=== PATIENT | female | born 1965 | race Caucasian/White ===

== ENCOUNTER → 2017-05-07 | Outpatient (CLI) | payer OTHER ==
--- NOTE | 2017-05-07 15:26 | REP ---
MRI RIGHT SHOULDER WITHOUT CONTRAST: HISTORY: Adhesive capsulitis of the right shoulder. No comparison radiographs. TECHNIQUE: Axial, oblique coronal, and oblique sagittal imaging planes are utilized. T1 and T2-weighted scans obtain in the usual fashion with and without fat saturation. MRI FINDINGS: There is a moderate sized glenohumeral joint effusion. No loose body is seen. Glenohumeral and acromioclavicular joints are normally aligned. There is AC joint hypertrophy and spurring. Subcortical cyst formation is seen in the superolateral humeral head. There is advanced tendonitis/tendinosis change in the distal supraspinatus tendon on oblique coronal T1-weighted scans. No focal or full-thickness supraspinatus cuff tear is seen. No retraction is seen. The infraspinatus, subscapularis, and biceps tendons appear intact. No anterior or posterior labral disruption is seen. No superior labral tear is seen. No juxta-articular cyst or mass is observed. There is mild inferolateral acromion process spurring. IMPRESSION: Advanced supraspinatus tendinosis change with thickening and increased signal intensity. AC joint and acromion process spurring. Subcortical cyst formation in the humeral head. Moderate sized glenohumeral joint effusion. Signed by Filipe Neri MD 05/07/2017 04:39 P
--- NOTE | 2017-05-07 16:06 | REP ---
MRI right humerus without contrast: History: Adhesive capsulitis of the right shoulder. No comparison radiographs. Technique: Axial, coronal and sagittal imaging planes are acquired. T1 and T2-weighted scans were obtained with and without fat saturation. MRI findings: Cortical and medullary bone signal intensity are normal in the humerus apart from the presence of subcortical cyst formation in the superolateral humeral head, which was described in the shoulder MRI study. No other evidence of bony abnormality. Joint effusion is seen at the glenohumeral articulation. No vascular abnormality is seen. Skeletal muscle shows normal T1 and T2-weighted signal intensity. No soft tissue mass or cyst is seen. Impression: Findings of subcortical cyst formation and joint effusion at the shoulder as described in the shoulder MRI. No additional abnormality. Signed by Filipe Neri MD 05/07/2017 04:39 P
== END ==
LOC: M PLARAD 13:34
PROVIDERS: ATTEND Orthopaedic Surgery
DX: M75.01 Adhesive capsulitis of right shoulder (principal)

== ENCOUNTER → 2021-02-05 | Outpatient (CLI) | payer BC ==
[~2021-02-05] MED LIST: PROHANCE 279.3MG/ML 15ML VIAL As Ordered ONE
--- NOTE | 2021-02-07 09:26 | REP ---
INDICATION: PANCREATIC MASS. COMPARISON: CT 11/13/2020, 12/05/2020. TECHNIQUE: Multiple sequences obtained in the axial coronal planes prior to and following the intravenous administration of 12 mL ProHance. FINDINGS: The liver is normal in size and demonstrates no abnormal signal or enhancement. No filling defect is seen in the gallbladder and there is no evidence of gallbladder wall edema. The common bile duct is at the upper limits of normal in caliber at 7 mm maximally. The spleen is normal in size with no intrinsic abnormality. The adrenal glands are normal. No renal mass or hydronephrosis is seen. The pancreas demonstrates homogeneous signal throughout. There is no pancreatic duct dilatation. No cystic or solid mass is seen. There is no abnormal enhancement. There is no evidence of adenopathy or free fluid in the abdomen. IMPRESSION: No abnormalities identified. The pancreas has a normal appearance, with no evidence of cystic or solid mass. <Electronically signed by Fidel Philip > 02/07/21 0930
== END ==
LOC: M RAD 15:50
PROVIDERS: ATTEND Internal Medicine
DX: K86.89 Other specified diseases of pancreas (principal); R93.5 Abnormal findings on diagnostic imaging of other abdominal regions, including retroperitoneum
CPT/HCPCS: 74183; A9576

== ENCOUNTER → 2021-12-19 | Outpatient (CLI) | payer BC | LOC: M RAD 08:53 | PROVIDERS: ATTEND Internal Medicine Hematology & Oncology | DX: D72.819 Decreased white blood cell count, unspecified (principal); K86.9 Disease of pancreas, unspecified ==